=== PATIENT | male | born 1955 | race Caucasian/White ===

== ENCOUNTER 2017-11-08 11:02 | Observation (INO) ==
[2017-11-08] MEDS ORDERED: NITROGLYCERIN SL 0.4 MG TABLET SL PRN (11:45)
[2017-11-08] MEDS ORDERED: ASPIRIN 325 MG TABLET PO STA (11:45)
[2017-11-08] MEDS ORDERED: ENOXAPARIN 100 MG/ML SYRINGE SUBCUT STA (11:45)
[2017-11-08 11:51] LABS: Basophils # 0.1 10*3/uL (0.0-0.2); Basophils % 1.1 % (0.0-0.8); Eosinophils # 0.8 10*3/uL (0.0-0.87); Hematocrit 34.6 VOL% (42.0-52.0); Hemoglobin 11.1 GM/DL (14.0-18.0); Immature Granulocytes % 0.1 %; Immature Granulocytes Absolute 0.01 #; Lymphocytes # 1.8 10*3/uL (1.4-4.0); Lymphocytes % 25.9 % (21.2-54.2); Mean Corpuscular HGB Conc 32.1 GM/DL (32-36); Mean Corpuscular Hemoglobin 29 PG (27-34); Mean Corpuscular Volume 89.6 FL (87-102); Mean Platelet Volume 10.9 FL (9.6-12.0); Monocytes # 0.6 10*3/uL (0.11-0.8); Monocytes % 8.3 % (1.7-12.7); Neutrophils # 3.7 10*3/uL (1.4-7.4); Neutrophils % 53.6 % (38.7-73.9); Platelet Count 214 T/CUMM (130-400); Red Blood Count 3.86 MC/CUMM (3.8-5.5); Red Cell Distribution Width 15.3 % (9.3-17.3)
[2017-11-08] MEDS ORDERED: ASPIRIN 325 MG TABLET ONE (11:52)
[2017-11-08] MEDS ORDERED: ENOXAPARIN 80 MG/0.8 ML SYRINGE SUBCUT ONE (11:52)
[2017-11-08 12:05] LABS: Alanine Aminotransferase 17 U/L (16-61); Albumin 3.9 G/DL (3.4-5.0); Alkaline Phosphatase 60 U/L (45-117); Aspartate Amino Transferase 19 U/L (0-37); Bilirubin,Total < 0.39 MG/DL (0.2-1.0); Blood Urea Nitrogen 15 MG/DL (7-18); Calcium 9.1 MG/DL (8.5-10.1); Glucose 93 MG/DL (74-106); Osmolality,Calculated 281.3 MOS/KG (273-304); Potassium 4.1 MMOL/L (3.5-5.1); Sodium 141 MMOL/L (136-145); Total Protein 7.4 G/DL (6.4-8.3)
[2017-11-08 12:15] LABS: Eosinophils 11 % (0-10); Hypochromasia 1+; Lymphocytes 24 % (20-55); Ovalocytes Slight; Segmented Neutrophils 59 % (50-85); Total Cells Counted 100
[2017-11-08 12:16] LABS: Microcytosis Slight; Platelet Estimate Normal
[2017-11-08] MEDS ORDERED: ACETAMINOPHEN 325 MG TABLET PO PRN (14:37)
[2017-11-08] MEDS ORDERED: METOPROLOL TARTRATE 5 MG/5 ML VIAL IV STA (15:28)
[2017-11-08] MEDS ORDERED: ATORVASTATIN 40 MG TABLET PO STA (15:34)
[2017-11-08] MEDS ORDERED: tiZANidine 4 MG TABLET PO PRN (15:34)
[2017-11-08] MEDS ORDERED: INFLUENZA VIRUS VACCINE 0.5 ML SYRINGE IM ONE (16:09)
[2017-11-08] MEDS ORDERED: PNEUMOCOCCAL VACCINE (13 VALENT) 0.5 ML SYRINGE IM ONE (16:09)
[2017-11-08] MEDS: LOSARTAN 25 MG TABLET PO SCH (16:55)
[2017-11-09 01:31] LABS: Basophils # 0.1 10*3/uL (0.0-0.2); Eosinophils # 0.7 10*3/uL (0.0-0.87); Eosinophils % 13.5 % (0.00-10.9); Hematocrit 33.4 VOL% (42.0-52.0); Hemoglobin 11.1 GM/DL (14.0-18.0); Immature Granulocytes % 0.4 %; Immature Granulocytes Absolute 0.02 #; Lymphocytes # 1.6 10*3/uL (1.4-4.0); Lymphocytes % 30.5 % (21.2-54.2); Mean Corpuscular HGB Conc 33.2 GM/DL (32-36); Mean Corpuscular Hemoglobin 29 PG (27-34); Mean Corpuscular Volume 86.8 FL (87-102); Mean Platelet Volume 10.8 FL (9.6-12.0); Monocytes # 0.5 10*3/uL (0.11-0.8); Monocytes % 9.1 % (1.7-12.7); Neutrophils # 2.4 10*3/uL (1.4-7.4); Neutrophils % 45.5 % (38.7-73.9); Platelet Count 206 T/CUMM (130-400); Red Blood Count 3.85 MC/CUMM (3.8-5.5); Red Cell Distribution Width 15.2 % (9.3-17.3); White Blood Count 5.2 T/CUMM (4-12)
[2017-11-09 01:51] LABS: Calcium 9.2 MG/DL (8.5-10.1); Osmolality,Calculated 287.7 MOS/KG (273-304); Potassium 3.8 MMOL/L (3.5-5.1)
[2017-11-09 01:54] LABS: Risk Ratio 4.23; VLDL CHOLESTEROL 31.2 MG/DL
[2017-11-09 02:02] LABS: Free T4 (Free Thyroxine) 0.77 NG/DL (0.76-1.46); Thyroid Stimulating Hormone 0.609 uIU/ml (0.358-3.74)
[2017-11-09 02:04] LABS: Troponin I Only < 0.015 NG/ML (0.00-0.045)
[2017-11-09 03:46] LABS: Anisocytosis 1+; Band Neutrophils 3 % (0-10); Eosinophils 18 % (0-10); Lymphocytes 31 % (20-55); Myelocytes 1 %; Segmented Neutrophils 46 % (50-85); Total Cells Counted 100
[2017-11-09 03:47] LABS: Platelet Estimate Normal; Tear Drop Cells Few
[2017-11-09] MEDS ORDERED: LEVOTHYROXINE 112 MCG TABLET PO SCH (07:00)
[2017-11-09 07:57] LABS: Apearance,Urine CLEAR (Clear); Bilirubin,Urine Negative (Negative); Blood, Urine Negative (Negative); Glucose,Urine (UA) Negative (Negative); Ketones,Urine Negative (Negative); Nitrite,Urine Negative (Negative); Protein,Urine Negative; RBC,Urine 1 /HPF (0-4); Urine Color Yellow (Yellow); Urine Specific Gravity 1.012 (1.001-1.035); WBC,Urine 1 /HPF (0-6)
[2017-11-09 08:14] VITALS: BP 137/82
[2017-11-09] MEDS: LOSARTAN 25 MG TABLET PO SCH (08:25)
[2017-11-09] MEDS ORDERED: ROSUVASTATIN 20 MG TABLET PO SCH (09:00)
[2017-11-09] MEDS ORDERED: OMEGA 3 ACID ETHYL ESTERS 1 GM CAPSULE PO SCH (09:00)
[2017-11-09] MEDS ORDERED: ASPIRIN EC 325 MG TABLET PO SCH (09:00)
[2017-11-09] MEDS ORDERED: MULTIVITAMIN (CENTRUM) TABLET PO SCH (09:00)
[2017-11-09] MEDS ORDERED: ASPIRIN EC 81 MG TABLET PO SCH (09:00)
== END 2017-11-09 12:08 | disposition home or self-care (01) ==
LOC: N.EDINP 11:02 → N.ED 11:02 → N.TELES 15:45
PROVIDERS: ADMIT Internal Medicine; ATTEND Internal Medicine

== ENCOUNTER 2022-10-16 16:21 | Inpatient (IN) ==
[2022-10-16 18:40] LABS: Basophils # 0.1 10*3/uL (0.0-0.2); Basophils % 1.6 % (0.0-0.8); Eosinophils # 0.3 10*3/uL (0.0-0.87); Eosinophils % 4.7 % (0.00-10.9); Hematocrit 29.1 VOL% (42.0-52.0); Hemoglobin 9.6 GM/DL (14.0-18.0); Immature Granulocytes % 0.3 %; Immature Granulocytes Absolute 0.02 #; Lymphocytes # 1.8 10*3/uL (1.4-4.0); Lymphocytes % 28.8 % (21.2-54.2); Mean Corpuscular Volume 97.7 FL (87-102); Monocytes # 0.5 10*3/uL (0.11-0.8); Neutrophils % 57.6 % (38.7-73.9); Platelet Count 151 T/CUMM (130-400); Red Blood Count 2.98 MC/CUMM (3.8-5.5); Red Cell Distribution Width 13.6 % (9.3-17.3)
[2022-10-16 19:03] LABS: Albumin 4.3 G/DL (3.4-5.0); Bilirubin,Total 0.5 MG/DL (0.20-1.00); Osmolality,Calculated 279.7 MOS/KG (273-304); Potassium 3.8 MMOL/L (3.5-5.1); Total Protein 8.2 G/DL (6.4-8.2)
[2022-10-16 19:33] LABS: Glucose,Urine (UA) Negative (Negative); Ketones,Urine Negative (Negative); Mucus,Urine Occasional /LPF (Occasional); Nitrite,Urine Negative (Negative); Protein,Urine 100 mg/dL (Negative); RBC,Urine 96 /HPF (0-4); Squamous Epithelial Cell,Urine Occasional /HPF (0-10); Urine Appearance Clear (Clear); Urine Color Yellow (Yellow); Urine pH 5.5 (4.5-8.0)
[2022-10-16 19:34] LABS: Bilirubin,Urine Negative (Negative); Blood, Urine Large mg/dL (Negative); Urine Urobilinogen 0.2 eU/dL (<2.0)
[2022-10-16 19:47] LABS: Barbiturates Screen,Urine Negative (Negative); Benzodiazepines Screen,Urine Negative (Negative); Cannabinoid Screen,Urine Positive (Negative); Opiate Screen,Urine Negative (Negative); Phencyclidine Screen,Urine Negative (Negative)
[2022-10-16] MEDS ORDERED: SODIUM CHLORIDE 0.9% 500 ML IV STA (19:55)
[2022-10-16] MEDS ORDERED: SIMETHICONE CHEW 125 MG TABLET PO PRN (21:10)
[2022-10-16] MEDS ORDERED: ONDANSETRON 4 MG/2 ML VIAL IV PRN (21:10)
[2022-10-16] MEDS ORDERED: ACETAMINOPHEN 325 MG TABLET PO PRN (21:10)
[2022-10-16] MEDS: LACTATED RINGERS 1,000 ML IV SCH (21:59)
[2022-10-16] MEDS ORDERED: INFLUENZA VIRUS VACCINE 0.5 ML SYRINGE IM ONE (22:36)
[2022-10-16] MEDS ORDERED: MELATONIN 3 MG TABLET PO PRN (23:07)
[2022-10-17 06:57] LABS: Albumin 3.4 G/DL (3.4-5.0); Bilirubin,Direct 0.12 MG/DL (0.0-0.20); Bilirubin,Indirect 0.4 MG/DL (0.0-1.0); Bilirubin,Total 0.5 MG/DL (0.20-1.00); Osmolality,Calculated 286.1 MOS/KG (273-304); Potassium 3.4 MMOL/L (3.5-5.1); Risk Ratio 2.13; Thyroid Stimulating Hormone 63.8 uIU/ml (0.358-3.74); Total Protein 6.8 G/DL (6.4-8.2); VLDL Cholesterol 26.8 MG/DL
[2022-10-17 07:05] LABS: % Iron Saturation 38.7 % (18-50); Ferritin 125.6 ng/mL (26-388)
[2022-10-17 07:07] LABS: Folate 10.17 NG/ML (5.38-24.0); Vitamin B12 412 PG/ML (211-911)
[2022-10-17 07:26] LABS: Basophils # 0.1 10*3/uL (0.0-0.2); Basophils % 1.1 % (0.0-0.8); Eosinophils # 0.3 10*3/uL (0.0-0.87); Eosinophils % 4.4 % (0.00-10.9); Hematocrit 27.9 VOL% (42.0-52.0); Hemoglobin 9.5 GM/DL (14.0-18.0); Immature Granulocytes % 0.5 %; Immature Granulocytes Absolute 0.03 #; Lymphocytes # 1.2 10*3/uL (1.4-4.0); Lymphocytes % 19.7 % (21.2-54.2); Mean Corpuscular HGB Conc 34.1 GM/DL (32-36); Mean Corpuscular Volume 96.2 FL (87-102); Mean Platelet Volume 11.8 FL (9.6-12.0); Monocytes # 0.5 10*3/uL (0.11-0.8); Monocytes % 7.4 % (1.7-12.7); Neutrophils % 66.9 % (38.7-73.9); Platelet Count 141 T/CUMM (130-400); Red Cell Distribution Width 13.5 % (9.3-17.3); White Blood Count 6.09 T/CUMM (4-12)
[2022-10-17 07:28] LABS: Hepatitis B Core IgM Quant 0.06 Index; Hepatitis B Surface Ag Quant 0.12 Index; Hepatitis B Surface Ag Result Non-Reactive (NonReactive); Hepatitis C Virus Ab Quant < 0.02 Index; Hepatitis C Virus Ab Result Non-Reactive (NonReactive)
[2022-10-17 07:52] LABS: Platelet Estimate Normal
[2022-10-17] MEDS ORDERED: APIXABAN 5 MG TABLET ONE (07:53)
[2022-10-17 08:02] LABS: Sedimentation Rate-Westergren 51 MM/HR (0-20)
[2022-10-17] MEDS: LACTATED RINGERS 1,000 ML IV SCH ×2 (08:25→17:20)
[2022-10-17] MEDS: DOCUSATE SODIUM 100 MG CAPSULE PO SCH ×2 (08:26→20:34)
[2022-10-17] MEDS: METOPROLOL SUCCINATE XL 25 MG TABLET PO SCH (08:26)
[2022-10-17] MEDS: PANTOPRAZOLE 40 MG TABLET PO SCH (08:26)
[2022-10-17] MEDS: ISOSORBIDE MONONITRATE 30 MG TABLET PO SCH (08:26)
[2022-10-17] MEDS: APIXABAN 5 MG TABLET PO SCH ×2 (08:26→20:34)
[2022-10-17] MEDS ORDERED: RANOLAZINE 500 MG TABLET PO SCH (09:00)
[2022-10-17 11:06] LABS: Hemoglobin A1 (Alkaline) 98.2 % (96.5-98.5); Hemoglobin A2 (Alkaline) 1.8 % (1.5-3.5)
[2022-10-17] MEDS: GABAPENTIN 400 MG CAPSULE PO SCH (20:34)
[2022-10-17] MEDS ORDERED: ROSUVASTATIN 20 MG TABLET PO SCH (21:00)
[2022-10-18] MEDS: LACTATED RINGERS 1,000 ML IV SCH ×4 (03:56→23:30)
[2022-10-18 04:52] LABS: Basophils # 0.1 10*3/uL (0.0-0.2); Basophils % 1.1 % (0.0-0.8); Eosinophils # 0.3 10*3/uL (0.0-0.87); Eosinophils % 5.3 % (0.00-10.9); Hematocrit 27.8 VOL% (42.0-52.0); Hemoglobin 9.3 GM/DL (14.0-18.0); Immature Granulocytes % 0.2 %; Immature Granulocytes Absolute 0.01 #; Lymphocytes # 1.4 10*3/uL (1.4-4.0); Lymphocytes % 26.7 % (21.2-54.2); Mean Corpuscular HGB Conc 33.5 GM/DL (32-36); Mean Corpuscular Volume 96.2 FL (87-102); Mean Platelet Volume 11.7 FL (9.6-12.0); Monocytes # 0.4 10*3/uL (0.11-0.8); Monocytes % 7.4 % (1.7-12.7); Neutrophils % 59.3 % (38.7-73.9); Platelet Count 141 T/CUMM (130-400); Red Blood Count 2.89 MC/CUMM (3.8-5.5); Red Cell Distribution Width 13.5 % (9.3-17.3); White Blood Count 5.28 T/CUMM (4-12)
[2022-10-18 05:13] LABS: Calcium 8.9 MG/DL (8.5-10.1); Potassium 3.5 MMOL/L (3.5-5.1)
[2022-10-18] MEDS ORDERED: ERGOCALCIFEROL 50,000 UNIT CAPSULE PO SCH (09:00)
[2022-10-18] MEDS: METOPROLOL SUCCINATE XL 25 MG TABLET PO SCH (09:22)
[2022-10-18] MEDS: ISOSORBIDE MONONITRATE 30 MG TABLET PO SCH (09:22)
[2022-10-18] MEDS: GABAPENTIN 400 MG CAPSULE PO SCH ×2 (09:22→21:10)
[2022-10-18] MEDS: PANTOPRAZOLE 40 MG TABLET PO SCH (09:22)
[2022-10-18] MEDS: DOCUSATE SODIUM 100 MG CAPSULE PO SCH ×2 (09:22→21:10)
[2022-10-18] MEDS: APIXABAN 5 MG TABLET PO SCH ×2 (09:22→21:10)
[2022-10-18] MEDS: TAMSULOSIN 0.4 MG CAPSULE PO SCH (10:09)
[2022-10-19 05:57] LABS: Basophils # 0.1 10*3/uL (0.0-0.2); Eosinophils # 0.2 10*3/uL (0.0-0.87); Eosinophils % 4.5 % (0.00-10.9); Hemoglobin 8.3 GM/DL (14.0-18.0); Immature Granulocytes % 0.2 %; Immature Granulocytes Absolute 0.01 #; Lymphocytes # 1.3 10*3/uL (1.4-4.0); Lymphocytes % 26.3 % (21.2-54.2); Mean Corpuscular HGB Conc 33.2 GM/DL (32-36); Mean Corpuscular Volume 96.5 FL (87-102); Mean Platelet Volume 11.6 FL (9.6-12.0); Monocytes # 0.4 10*3/uL (0.11-0.8); Monocytes % 8.4 % (1.7-12.7); Neutrophils % 59.6 % (38.7-73.9); Platelet Count 127 T/CUMM (130-400); Red Blood Count 2.59 MC/CUMM (3.8-5.5); Red Cell Distribution Width 13.7 % (9.3-17.3)
[2022-10-19 06:27] LABS: Albumin 3.2 G/DL (3.4-5.0); Bilirubin,Total 0.4 MG/DL (0.20-1.00); Calcium 8.9 MG/DL (8.5-10.1); Osmolality,Calculated 284.1 MOS/KG (273-304); Potassium 3.4 MMOL/L (3.5-5.1); Total Protein 6.7 G/DL (6.4-8.2)
[2022-10-19 07:25] VITALS: BP 134/84
[2022-10-19] MEDS: APIXABAN 5 MG TABLET PO SCH (08:46)
[2022-10-19] MEDS: GABAPENTIN 400 MG CAPSULE PO SCH (08:46)
[2022-10-19] MEDS: PANTOPRAZOLE 40 MG TABLET PO SCH (08:46)
[2022-10-19] MEDS: ISOSORBIDE MONONITRATE 30 MG TABLET PO SCH (08:46)
[2022-10-19] MEDS: DOCUSATE SODIUM 100 MG CAPSULE PO SCH (08:46)
[2022-10-19] MEDS: TAMSULOSIN 0.4 MG CAPSULE PO SCH (08:46)
[2022-10-19] MEDS: METOPROLOL SUCCINATE XL 25 MG TABLET PO SCH (08:46)
[2022-10-19] MEDS: LACTATED RINGERS 1,000 ML IV SCH (08:47)
== END 2022-10-19 12:45 | disposition home health service (06) | DRG 682 ==
LOC: N.ED 16:21 → N.EDINP 21:10 → N.3E 22:20
PROVIDERS: ADMIT Hospitalist; ATTEND Hospitalist